=== PATIENT | female | born 1985 | race Caucasian/White ===

== ENCOUNTER → 2020-10-27 14:20 | Outpatient (BNVA) | payer MEDICAID, SELFPAY | PROVIDERS: Family Provider Family Medicine; Visit Provider Nurse Practitioner | DX: R39.9 Unspecified symptoms and signs involving the genitourinary system (principal); N39.0 Urinary tract infection, site not specified | CPT/HCPCS: 81000 ==

== ENCOUNTER 2021-03-24 17:06 | Emergency (ER) | payer MEDICAID, SELFPAY ==
--- NOTE | 2021-03-24 17:09 | CTR_ITS ---
PROCEDURE INFORMATION: Exam: CT Head Without Contrast Exam date and time: 03/24/2021 5:09 PM Age: 35 years old Clinical indication: Altered mental status/memory loss; Additional info: Od TECHNIQUE: Imaging protocol: Computed tomography of the head without contrast. Radiation optimization: All CT scans at this facility use at least one of these dose optimization techniques: automated exposure control; mA and/or kV adjustment per patient size (includes targeted exams where dose is matched to clinical indication); or iterative reconstruction. COMPARISON: No relevant prior studies available. RADIATION DOSE METRICS: Total DLP (mGy-cm): 761.63 FINDINGS: Brain: Normal. No hemorrhage. Unremarkable white matter. No mass effect. Cerebral ventricles: No ventriculomegaly. Paranasal sinuses: Visualized sinuses are unremarkable. No fluid levels. Mastoid air cells: Visualized mastoid air cells are well aerated. Bones/joints: Unremarkable. No acute fracture. Soft tissues: Unremarkable. CT/CT head wo con* [id number] IMPRESSION: No acute intracranial abnormality. Radiation Dose CTDIVOL = (mGy): DLP = 761.63 (mGy-cm)
[2021-03-24 17:13] VITALS: BP 154/100; PULSE 70; RESP 18; TEMP 37.1; O2SAT 100; BMI 24.2
--- NOTE | 2021-03-24 17:23 | ECG_ITS ---
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 Measurements Intervals [place] Rate: 61 P: 44 WA: 124 QRS: 52 QRSD: 74 T: 48 QT: 443 QTc: 450 Interpretive Statements SINUS RHYTHM Compared to ECG 05/13/2018 04:08:58 No significant changes Electronically Signed On 03-24-2021 22:48:21 STOCK PATCH SAWYER by Anabela Rivas M.D. [id number]
--- NOTE | 2021-03-24 17:24 | XRR_ITS ---
PROCEDURE INFORMATION: Exam: XR Chest Exam date and time: 03/24/2021 5:24 PM Age: 35 years old Clinical indication: Other: AMS TECHNIQUE: Imaging protocol: XR of the chest. Views: 1 view. COMPARISON: CR Chest 1 [place] [id number] 05/12/2018 11:13 PM FINDINGS: Lungs: Unremarkable. No consolidation. Pleural spaces: Unremarkable. No pleural effusion. No pneumothorax. Heart/Mediastinum: Unremarkable. No cardiomegaly. Bones/joints: Unremarkable. XR/XR chest 1V portable [id number] IMPRESSION: No acute findings. Radiation Dose CTDIVOL = (mGy): DLP = (mGy-cm)
--- NOTE | 2021-03-24 17:24 | XRR_ITS ---
PROCEDURE INFORMATION: Exam: XR Abdomen Exam date and time: 03/24/2021 5:24 PM Age: 35 years old Clinical indication: Prior surgery; Surgery type: Gb; Patient HX: Od. Possible fb; Additional info: AMS TECHNIQUE: Imaging protocol: XR of the abdomen. Views: Frontal supine view of the abdomen. 1 View. COMPARISON: CT abdomen pelvis w con* [id number] 04/26/2018 11:29 PM FINDINGS: Gastrointestinal tract: Scattered gas and stool throughout prominent colon. Small amount of gas in the rectum. Gas-filled loops of small bowel in the right abdomen measure up to 2.0 cm. Intraperitoneal space: No pneumoperitoneum. Organs: Cholecystectomy clips. Bones/joints: Intramedullary natali in the right femur transversing an old healed subtrochanteric femur fracture. XR/XR KUB [id number] IMPRESSION: 1. Gaseous prominence of the small and large bowel could represent ileus. Radiation Dose CTDIVOL = (mGy): DLP = (mGy-cm)
--- NOTE | 2021-03-24 17:32 | W.ED.OVERDOS ---
HPI - Overdose General: Chief Complaint: Overdose Stated Complaint: AMS Time Seen by Provider: 03/24/21 17:09 Source: EMS Mode of arrival: EMS Limitations: altered mental status History of Present Illness: HPI Narrative: 25-year-old female who is [facility] and found her altered. Patient was given intranasal Narcan in route patient here will wake up is able to tell me her name but then immediately passes back out unable to answer any questions unknown if she has had any drug use she has been in [facility] for 2 days. No history is available from patient no known history of seizures no known history of any head injuries recently. No bruising noted on exam. Review of Systems General: Reports: ROS unobtainable due to mental status PFSH ED PFSH: Social History Smoking and tobacco status: current every day smoker Physical Exam Const: COMMON NORMALS: negative for patient oriented x3 EXAM LIMITATIONS: altered mental status HENMT: COMMON NORMALS: normocephalic and atraumatic HEAD & SCALP: normocephalic and atraumatic Eye: COMMON NORMALS: Equal, round and reactive pupils present and EOMs intact bilaterally PUPIL: Yes Equal, round and reactive pupils present Neck/C-Spine: COMMON NORMALS: full ROM and supple Chest: COMMONS NORMALS: normal inspection of the chest and normal palpation of entire chest wall Resp: COMMON NORMALS: normal respiratory effort, No retractions, No use of accessory muscles and clear to auscultation bilaterally AUSCULTATION: clear to auscultation bilaterally Cardio: COMMON NORMALS: regular rate, regular rhythm and No murmurs present (Cardio) RATE: regular rate RHYTHM: regular rhythm GI: COMMON NORMALS: Normal to inspection, nondistended, normoactive bowel sounds present, Soft to palpation, non-tender and no masses PALPATION: Yes Soft to palpation Extremity: COMMON NORMALS: normal to inspection and full ROM Neuro: COMMON NORMALS: moves all extremities and no focal motor deficits; negative for patient oriented x3 Psych: COMMON NORMALS: mental status grossly normal; negative for Normal thought process present and negative for cooperative THOUGHT PROCESS: abnormal Skin: COMMON NORMALS: no rashes or lesions noted and no wounds GENERAL SKIN EXAM: no rashes or lesions noted Course Vital Signs: Vital signs: Vital Signs Temperature 98.7 F 03/24/21 17:13 Pulse Rate 78 03/24/21 21:08 Respiratory Rate 18 03/24/21 21:08 Blood Pressure 118/71 03/24/21 21:08 Pulse Oximetry 100 03/24/21 21:08 MDM - Overdose MDM Narrative: Medical decision making narrative: Patient presents here with altered male status since resolved. Unsure exactly the cause her drug screen here was negative blood work CT head scan normal over the last 2 hours of her stay she has been awake alert able answer all my questions appropriately she refused a rectal and vaginal exam. Patient is ambulatory in the halls. She is stable for discharge back to [facility] is return if worsening. Lab Data: Labs: Lab Results 03/24/21 03/24/21 03/24/21 17:30 17:30 17:30 WBC 9.4 10^3/uL 10^3/ uL (4.0-10.0) RBC 4.48 10^6/uL 10^6 /uL (4.1-5.3) Hgb 13.0 g/dL g/dL (11.5-15.3) Hct 38.0 % % (37.0-47.0) MCV 84.8 fl fl (81-99) MCH 29.0 pg pg (28.0-34.0) MCHC 34.2 g/dL g/dL (30.0-36.0) RDW 13.8 % % (12.1-15.1) Plt Count 284 10^3/cmm 10^3 /cmm (130-400) MPV 9.2 fL fL (7.4-10.4) Neut % (Auto) 67.8 % % Lymph % (Auto) 25.8 % % Esmeralda % (Auto) 5.5 % % Eos % (Auto) 0.2 % % Baso % (Auto) 0.4 % % Neut # (Auto) 6.39 10^3/uL 10^3 /uL (1.8-7.7) Lymph # (Auto) 2.4 10^3/uL 10^3/ uL (0.8-4.8) Esmeralda # (Auto) 0.5 10^3/uL 10^3/ uL (0.2-0.9) Eos # (Auto) 0.0 10^3/uL 10^3/ uL (0.0-0.8) Baso # (Auto) 0.0 10^3/uL 10^3/ uL (0.0-0.1) Nucleated RBC % (a uto) 0 % % Nucleated RBCs # 0.0 /100WBC /100W BC Sodium Cancelled Potassium Cancelled Chloride Cancelled Carbon Dioxide Cancelled Anion Gap Cancelled BUN Cancelled Creatinine Cancelled GFR Calculation Cancelled Glucose Cancelled Calculated Osmolal ity Cancelled Calcium Cancelled Total Bilirubin Cancelled AST Cancelled ALT Cancelled Alkaline Phosphata se Cancelled Total Protein Cancelled Albumin Cancelled Globulin Cancelled HCG, Qual Negative (Negative) Salicylates Cancelled Urine Opiates Scre en Acetaminophen Cancelled Ur Barbiturates Sc reen Ur Phencyclidine S crn Ur Amphetamines Sc reen U Benzodiazepines Scrn Urine Cocaine Scre en U Marijuana (THC) Screen Ethyl Alcohol Cancelled 03/24/21 03/24/21 17:45 18:59 WBC RBC Hgb Hct MCV MCH MCHC RDW Plt Count MPV Neut % (Auto) Lymph % (Auto) Esmeralda % (Auto) Eos % (Auto) Baso % (Auto) Neut # (Auto) Lymph # (Auto) Esmeralda # (Auto) Eos # (Auto) Baso # (Auto) Nucleated RBC % (a uto) Nucleated RBCs # Sodium 141 mmol/L mmol/L (136-145) Potassium 3.2 mmol/L L mmol /L (3.5-5.1) Chloride 111 mmol/L H mmol /L (98-107) Carbon Dioxide 16 mmol/L L mmol/ L (22-29) Anion Gap 17.2 (5-19) BUN 25 mg/dL H mg/dL (6-20) Creatinine 1.6 mg/dL H mg/dL (0.5-0.9) GFR Calculation 36.7 mL/min L mL/ min (90-130) Glucose 84 mg/dL mg/dL (65-115) Calculated Osmolal ity 296 mOsm/kg H mOs m/kg (285-295) Calcium 7.7 mg/dL L mg/dL (8.5-10.5) Total Bilirubin 0.5 mg/dL mg/dL (0.15-1.2) AST 6 U/L U/L (0-32) ALT < 5 U/L U/L (0-33) Alkaline Phosphata se 53 IU/L IU/L (35-105) Total Protein 7.7 g/dL g/dL (6.6-8.7) Albumin 3.9 g/dL g/dL (3.5-5.2) Globulin 3.8 g/dL g/dL (1.3-4.6) HCG, Qual Salicylates < 0.3 mg/dL L mg/ dL (3-10) Urine Opiates Scre en Negative ng/mL ng /mL (Negative) Acetaminophen < 5.0 ug/mL L ug/ mL (10-30) Ur Barbiturates Sc reen Negative ng/mL ng /mL (Negative) Ur Phencyclidine S crn Negative ng/mL ng /mL (Negative) Ur Amphetamines Sc reen Negative ng/mL ng /mL (Negative) U Benzodiazepines Scrn Negative ng/mL ng /mL (Negative) Urine Cocaine Scre en Negative ng/mL ng /mL (Negative) U Marijuana (THC) Screen Negative ng/mL ng /mL (Negative) Ethyl Alcohol Imaging Data^: CT Head: Attestation: I personally reviewed and interpreted this imaging study as follows: Radiologist's impression: [address] [place] [address] CT Scan Report Signed Patient: Monica Denney Unit #: [id number] : 1985 Age/Sex: 35 / F ADM Date: 03/24/21 Loc: ER Room/Bed: Attending Dr: Ordering Provider/Ordering MD: Keo Fierro MD Date of Service: 03/24/21 Procedure(s): CT head wo con* [id number] Accession Number(s): [id number] Report Number: [id number] PROCEDURE INFORMATION: Exam: CT Head Without Contrast Exam date and time: 03/24/2021 5:09 PM Age: 35 years old Clinical indication: Altered mental status/memory loss; Additional info: Od TECHNIQUE: Imaging protocol: Computed tomography of the head without contrast. Radiation optimization: All CT scans at this facility use at least one of these dose optimization techniques: automated exposure control; mA and/or kV adjustment per patient size (includes targeted exams where dose is matched to clinical indication); or iterative reconstruction. COMPARISON: No relevant prior studies available. RADIATION DOSE METRICS: Total DLP (mGy-cm): 761.63 FINDINGS: Brain: Normal. No hemorrhage. Unremarkable white matter. No mass effect. Cerebral ventricles: No ventriculomegaly. Paranasal sinuses: Visualized sinuses are unremarkable. No fluid levels. Mastoid air cells: Visualized mastoid air cells are well aerated. Bones/joints: Unremarkable. No acute fracture. Soft tissues: Unremarkable. CT/CT head wo con* [id number] IMPRESSION: No acute intracranial abnormality. Radiation Dose CTDIVOL = (mGy): DLP = 761.63 (mGy-cm) Dictated By: Avinash Hammer Signed By: Avinash Hammer Signed Date/Time: 03/24/211755 DD/ 08 CXR: Radiologist's impression: [address] [address] XRay Report Signed Patient: Monica Denney Unit #: [id number] : 1985 Age/Sex: 35 / F ADM Date: 03/24/21 Loc: ER Room/Bed: Attending Dr: Ordering Provider/Ordering MD: Keo Fierro MD Date of Service: 03/24/21 Procedure(s): XR chest 1V portable [id number] Accession Number(s): [id number] Report Number: [id number] PROCEDURE INFORMATION: Exam: XR Chest Exam date and time: 03/24/2021 5:24 PM Age: 35 years old Clinical indication: Other: AMS TECHNIQUE: Imaging protocol: XR of the chest. Views: 1 view. COMPARISON: CR Chest 1 [place] [id number] 05/12/2018 11:13 PM FINDINGS: Lungs: Unremarkable. No consolidation. Pleural spaces: Unremarkable. No pleural effusion. No pneumothorax. Heart/Mediastinum: Unremarkable. No cardiomegaly. Bones/joints: Unremarkable. XR/XR chest 1V portable [id number] IMPRESSION: No acute findings. Radiation Dose CTDIVOL = (mGy): DLP = (mGy-cm) Dictated By: Avinash Hammer Signed By: Avinash Hammer Signed Date/Time: 03/24/211756 DD/ 1724 Discharge Plan Discharge Patient Disposition: Home Clinical Impression: Altered mental status Qualifiers: Altered mental status type: unspecified Qualified Code(s): R41.82 - Altered mental status, unspecified Condition: Stable Prescriptions: No Action No Known Home Medications RF: 0 ciprofloxacin HCl 500 mg tablet 500 mg PO Q12H 7 Days Qty: 14 RF: 0 phenazopyridine [Pyridium] 200 mg tablet 200 mg PO TID Qty: 6 RF: 0 Discharge Orders: Discharge ED (Routine); Ordered 03/24/21 Ordered By: Keo Fierro Referrals: Shemar Mosqueda MD [Primary Care Provider] - 1-3 days Discharge Diet: Advance as tolerated Discharge Activity: Resume usual activity Patient Instructions: Altered Mental Status (ED) Coding Level of Care Code 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
[2021-03-24 17:53] LABS: Basophils % 0.4 %; Eosinophils % 0.2 %; Lymphocytes # 2.4 10^3/uL (0.8-4.8); Lymphocytes % 25.8 %; Mean Corpuscular HGB Conc 34.2 g/dL (30.0-36.0); Mean Corpuscular Volume 84.8 fl (81-99); Mean Platelet Volume 9.2 fL (7.4-10.4); Monocytes # 0.5 10^3/uL (0.2-0.9); Monocytes % 5.5 %; Neutrophils # 6.39 10^3/uL (1.8-7.7); Neutrophils % 67.8 %; Nucleated Red Blood Cells % 0 %; Platelet Count 284 10^3/cmm (130-400); Red Blood Count 4.48 10^6/uL (4.1-5.3); Red Cell Distribution Width 13.8 % (12.1-15.1); White Blood Count 9.4 10^3/uL (4.0-10.0)
[2021-03-24] MEDS: sodium chloride 0.9% 1,000 ML 999 ML IV ×2 (17:57→20:20)
[2021-03-24] MEDS: naloxone 0.4 mg/ml SDV 1 MG IVP (17:57)
[2021-03-24 18:00] VITALS: BP 132/87; PULSE 75; RESP 18; O2SAT 98
[2021-03-24 18:55] LABS: HCG, Serum Qual Negative (Negative)
[2021-03-24 19:06] LABS: Amphetamines Screen Urine Negative (Negative); Barbiturates Screen Urine Negative (Negative); Benzodiazepines Screen Urine Negative (Negative); Cocaine Screen Urine Negative (Negative); Opiate Screen Urine Negative (Negative); PCP Screen Urine Negative (Negative); THC Screen Urine Negative (Negative)
[2021-03-24 19:26] LABS: Alanine Aminotransferase < 5 U/L (0-33); Albumin Level 3.9 g/dL (3.5-5.2); Alkaline Phosphatase 53 IU/L (35-105); Anion Gap 17.2 (5-19); Aspartate Amino Transferase 6 U/L (0-32); Blood Urea Nitrogen 25 mg/dL (6-20); Calcium 7.7 mg/dL (8.5-10.5); Carbon Dioxide 16 mmol/L (22-29); Chloride 111 mmol/L (98-107); Globulin 3.8 g/dL (1.3-4.6); Glomerular Filtration Rate 36.7 mL/min (90-130); Glucose 84 mg/dL (65-115); Osmolality Calculated 296 mOsm/kg (285-295); Potassium 3.2 mmol/L (3.5-5.1); Sodium 141 mmol/L (136-145); Total Bilirubin 0.5 mg/dL (0.15-1.2); Total Protein 7.7 g/dL (6.6-8.7)
[2021-03-24 19:32] LABS: Acetaminophen < 5.0 ug/mL (10-30); Salicylate < 0.3 mg/dL (3-10)
[2021-03-24 21:08] VITALS: BP 118/71; PULSE 78; RESP 18; O2SAT 100
[2021-03-26 22:47] LABS: Alcohol Metabolites NEGATIVE ng/mL (<500)
== END 2021-03-24 21:10 | disposition home or self-care (01) ==
PROVIDERS: Emergency Provider Emergency Medicine; PCP Family Medicine
DX: R41.82 Altered mental status, unspecified (principal); F17.210 Nicotine dependence, cigarettes, uncomplicated
CPT/HCPCS: 70450; 71045; 74018; 80053; 80306; 80307; 84703; 85025; 93005; 96361; 96374; 99284; J2310; J7030

== ENCOUNTER 2021-04-06 21:34 | Emergency (ER) | payer MEDICAID, SELFPAY ==
[2021-04-06 21:37] VITALS: BP 146/103; PULSE 101; RESP 18; TEMP 36.6; O2SAT 99; BMI 24.2
--- NOTE | 2021-04-06 21:42 | ED_ITS ---
HPI - Dental/Oral General: Chief complaint: Dental/Oral Stated complaint: Abcessed Tooth Pain Time Seen by Provider: 04/06/21 21:42 History of Present Illness: HPI Narrative: Patient comes in with concerns for right lower jaw pain and swelling. Patient reports noticing the pain yesterday but the swelling starting this morning. Patient has no difficulty swallowing. Patient appears mildly unwell but not toxic. Review of Systems General: Reports: 10 or more systems reviewed and unremarkable except in HPI and below ENMT: Reports: dental pain PFSH ED PFSH: Social History Smoking and tobacco status: current every day smoker Physical Exam Const: COMMON NORMALS: no acute distress and patient oriented x3 GENERAL APPEARANCE: cooperative HENMT: COMMON NORMALS: normocephalic, TM's normal bilaterally and Normal external nose present HEAD & SCALP: normal to inspection and normocephalic NOSE: Normal external nose present TYMPANIC MEMBRANE: TM's normal bilaterally MOUTH: other (Poor dentition, swelling of the gumline to the first premolar) THROAT: posterior oropharynx normal Eye: GENERAL EYE: appearance normal, both eyes and all related structures Neck/C-Spine: COMMON NORMALS: full ROM Lymph: OTHER: Right side cervical lymphadenopathy Chest: COMMONS NORMALS: normal inspection of the chest Resp: COMMON NORMALS: normal respiratory effort EFFORT & INSPECTION: Yes able to speak in complete sentences Cardio: COMMON NORMALS: regular rate and regular rhythm RATE: regular rate RHYTHM: regular rhythm GI: COMMON NORMALS: non-tender Back/Pelvis: COMMON NORMALS: thoracic and lumbar spine normal to inspection Extremity: COMMON NORMALS: normal to inspection Neuro: COMMON NORMALS: patient oriented x3 and moves all extremities Psych: COMMON NORMALS: mental status grossly normal and cooperative Skin: COMMON NORMALS: no rashes or lesions noted GENERAL SKIN EXAM: no rashes or lesions noted Course Vital Signs: Vital signs: Vital Signs Temperature 97.8 F 04/06/21 21:37 Pulse Rate 101 H 04/06/21 21:37 Respiratory Rate 18 04/06/21 21:37 Blood Pressure 146/103 04/06/21 21:37 Pulse Oximetry 99 04/06/21 21:37 MDM - Dental/Oral MDM Narrative: Medical decision making narrative: 35-year-old female comes in today with right lower jaw pain. On exam patient has some swelling and tenderness to the right lower jaw in the area surrounding the first premolar. Patient has really poor dentition with multiple dental caries and decay to the gumline. Differential diagnosis includes odontalgia, dental abscess, floor mouth cellulitis. No sign of serious illness is noted. Patient is able to manage secretions well and voice is clear. Patient be started on Augmentin 875 twice a day for 7 days. Patient was strongly encouraged to follow-up with dentist for definitive care. Patient was instructed use acetaminophen for pain along with ice or heat. Patient reported understanding and agreed to plan. Discharge Plan Discharge Patient Disposition: Home Clinical Impression: Dental abscess Condition: Stable Prescriptions: New Augmentin 875-125 mg tablet 1 tab PO BID Qty: 14 RF: 0 No Action ciprofloxacin HCl 500 mg tablet 500 mg PO Q12H 7 Days Qty: 14 RF: 0 phenazopyridine [Pyridium] 200 mg tablet 200 mg PO TID Qty: 6 RF: 0 Discharge Orders: Discharge ED (Routine); Ordered 04/06/21 Ordered By: Shailesh Velazquez Referrals: Shemar Mosqueda MD [Primary Care Provider] - Discharge Diet: Usual diet Discharge Activity: Increase activity as tolerated Patient Instructions: Dental Abscess (ED), Opioid Safety Coding Level of Care Code ED Sales Support Consultant for Cheryl Hernandez
[2021-04-06] MEDS: amoxicillin-clav 875-125 mg Tablet 1 TAB PO (21:52)
[2021-04-06 21:56] VITALS: RESP 16
== END 2021-04-06 21:56 | disposition home or self-care (01) ==
PROVIDERS: Emergency Provider Nurse Practitioner Family; PCP Family Medicine
DX: K04.7 Periapical abscess without sinus (principal); F17.210 Nicotine dependence, cigarettes, uncomplicated
CPT/HCPCS: 99282

== ENCOUNTER 2021-09-06 13:36 | Emergency (ER) | payer MEDICAID, SELFPAY ==
[2021-09-06 13:44] VITALS: BP 153/97; PULSE 110; RESP 16; TEMP 36.4; O2SAT 100; BMI 20.9
--- NOTE | 2021-09-06 13:55 | ED_ITS ---
HPI - Dental/Oral General: Chief complaint: Dental/Oral Stated complaint: infected tooth Time Seen by Provider: 09/06/21 13:52 Source: patient Mode of arrival: ambulatory Limitations: no limitations History of Present Illness: Patient is a 35-year-old female who presents to ED today with complaint of a possible abscessed tooth to her right lower gumline that she has noticed over the past 2 days. Patient tells me she has a history of poor dentition. She states she has an upcoming dental appointment to get several extractions and fears they will not perform the procedures unless she is on antibiotics. MD Complaint: tooth pain Teeth map: 1. Onset (ago): day(s) Duration: constant Severity: moderate Relieving factors: nothing Exacerbating factors: chewing Context: history of dental caries and poor dental care Associated symptoms: Reports no associated symptoms; Denies ear or mastoid pain or fever(s) Treatment prior to arrival: none Review of Systems Const: Denies: fever(s), chills, body aches, fatigue or malaise ENMT: Reports: dental pain; Denies: hoarseness, swelling of lips/tongue, oral sores, bleeding gums or ear or mastoid pain Card: Denies: chest pain Resp: Denies: dyspnea GI: Denies: abdominal pain, nausea or vomiting Musc: Denies: neck pain Skin/Breast: Denies: rash Neuro: Denies: headache(s) PFS ED PFSH: Social History Smoking and tobacco status: current every day smoker Physical Exam Const: COMMON NORMALS: no acute distress, patient oriented x3, no limitations and alert GENERAL APPEARANCE: cooperative HENMT: COMMON NORMALS: normocephalic and atraumatic HEAD & SCALP: normal to inspection, normocephalic and atraumatic FACE & SINUS: normal facial exam MOUTH: Normal oral and palatal mucosa present, lip normal and tongue normal TEETH & GINGIVA: Yes caries and Yes poor dentition (severe widespread dental decay) TEETH & GINGIVA IMAGES: 1. several severely decayed teeth; she has some moderate swelling to lower gumline-possibly small developing abscess THROAT: posterior oropharynx normal, tonsils normal and uvula midline Eye: GENERAL EYE: appearance normal, both eyes and all related structures Neck/C-Spine: COMMON NORMALS: full ROM and no lymphadenopathy GENERAL: Yes normal visual inspection, No anterior neck swelling, No lymphadenopathy and No submandibular swelling Resp: COMMON NORMALS: normal respiratory effort Cardio: COMMON NORMALS: regular rate and regular rhythm RATE: regular rate RHYTHM: regular rhythm Neuro: CAL COMA SCALE: document GCS findings Cal coma scale eye opening: Spontaneous Cal coma scale verbal response: Orientated [place] coma scale motor response: Obey commands [place] coma scale total score: 15 COMMON NORMALS: patient oriented x3 and CN's II-XII intact bilaterally SENSORIUM/ORIENTATION: Yes alert Skin: COMMON NORMALS: no rashes or lesions noted GENERAL SKIN EXAM: no rashes or lesions noted Course Vital Signs: Vital signs: Vital Signs Temperature 97.6 F 09/06/21 13:44 Pulse Rate 110 H 09/06/21 13:44 Respiratory Rate 16 09/06/21 13:44 Blood Pressure 153/97 09/06/21 13:44 Pulse Oximetry 100 09/06/21 13:44 MDM - Dental/Oral Medical Decision Making Patient given IM clindamycin prior to discharge will be placed on oral clindamycin at home. Recommend she follow-up with her dental appointment in approximately a week for reevaluation. Return to ED precautions given. Discharge Plan Discharge Patient Disposition: Home Clinical Impression: Dental abscess, Dental caries Condition: Stable Prescriptions: New Peridex 0.12 % mouthwash 15 ml buccal BID Qty: 473 0RF clindamycin HCl 300 mg capsule 300 mg PO Q6H 7 Days Qty: 28 0RF Discontinued ciprofloxacin HCl 500 mg tablet 500 mg PO Q12H 7 Days Qty: 14 0RF phenazopyridine [Pyridium] 200 mg tablet 200 mg PO TID Qty: 6 0RF amoxicillin-pot clavulanate [Augmentin] 875-125 mg tablet 1 tab PO BID Qty: 14 0RF Discharge Orders: Discharge ED (Routine); Ordered 09/06/21 Ordered By: Raina Babcock Referrals: Shemar Mosqueda MD [Primary Care Provider] - Patient Instructions: Dental Caries (Cavities), Dental Abscess (ED), Toothache (ED) Coding Level of Care Code ED English Faculty Member for Cheryl Hernandez
[2021-09-06] MEDS: clindamycin 150 mg/mL SDV 6 mL 600 MG IM (14:39)
== END 2021-09-06 15:17 | disposition home or self-care (01) ==
PROVIDERS: Emergency Provider Physician Assistant; PCP Family Medicine
DX: K04.7 Periapical abscess without sinus (principal); K02.9 Dental caries, unspecified; F17.200 Nicotine dependence, unspecified, uncomplicated
CPT/HCPCS: 96372; 99283; J3490

== ENCOUNTER 2023-11-11 08:18 | Emergency (ER) | payer BC, MEDICAID, SELFPAY ==
[2023-11-11 08:24] VITALS: BP 134/93; PULSE 117; RESP 20; TEMP 37; O2SAT 100; BMI 24.7
--- NOTE | 2023-11-11 08:34 | CTR_ITS ---
PROCEDURE INFORMATION: Exam: CT Abdomen And Pelvis Without Contrast Exam date and time: 11/11/2023 9:17 AM Age: 38 years old Clinical indication: Abdominal pain; Flank; Other: Bilateral; Prior surgery; Surgery date: 6+ months; Surgery type: Hernia; Additional info: Polycystic kidney disease TECHNIQUE: Imaging protocol: Computed tomography of the abdomen and pelvis without contrast. Radiation optimization: All CT scans at this facility use at least one of these dose optimization techniques: automated exposure control; mA and/or kV adjustment per patient size (includes targeted exams where dose is matched to clinical indication); or iterative reconstruction. COMPARISON: CT abdomen pelvis w con* [id number] 04/26/2018 11:29 PM RADIATION DOSE METRICS: Total DLP (mGy-cm): 433 FINDINGS: Lungs: Lung bases are clear as visualized. Liver: Normal. No mass. Gallbladder and biliary ducts: There are surgical clips within the gallbladder fossa. Pancreas: Normal. No ductal dilation. Spleen: Normal. No splenomegaly. Adrenal glands: Normal. No mass. Kidneys and ureters: The kidneys are enlarged with numerous cysts present. There are multiple calcifications involving both kidneys. No definite hydronephrosis is noted. No ureteral calculi is identified. There is mild perinephric fat stranding involving the posterior upper and mid perinephric soft tissues. This could be related to inflammation involving the left kidney possible rupture of a cyst or possibly a small amount of hemorrhage from cyst rupture. Stomach and bowel: No dilated loops of large or small bowel is appreciated. There are a few scattered colonic diverticula. No bowel wall thickening is noted. Appendix: No evidence of appendicitis. Intraperitoneal space: Unremarkable. No free air. No significant fluid collection. Vasculature: Unremarkable. No abdominal aortic aneurysm. Lymph nodes: Unremarkable. No enlarged lymph nodes. Urinary bladder: Unremarkable as visualized. Reproductive: Unremarkable as visualized. Bones/joints: There are postoperative changes involving the proximal right femur. No blastic or lytic bony lesions are identified. Soft tissues: See Kidneys and ureters finding. CT/CT kidney stone [id number] IMPRESSION: 1. Polycystic kidney disease. 2. Mild degree of perinephric fat stranding involving the left kidney. Differential possibilities are given above. COMMENTS: Consistent with the [place] [employer]'s Incidental Findings Committee white paper (J [employer] Indy Radiol 2018): Any incidental renal lesion less than 1 cm or classified as too small to characterize, or any incidental cystic renal lesion characterized as simple-appearing, is likely benign. No follow-up imaging is recommended for these lesions per consensus recommendations based on imaging criteria.
[2023-11-11 08:46] VITALS: RESP 16; O2SAT 100
[2023-11-11] MEDS: fentaNYL 50 mcg/mL INJ 2mL IVP (08:46)
[2023-11-11] MEDS: ondansetron 2 mg/ML SDV 2 mL 4 MG IVP (08:46)
[2023-11-11] MEDS: sodium chloride 0.9% 1,905.09 ML 1905.09 ML IV (08:49)
[2023-11-11 08:56] VITALS: BP 137/80; PULSE 110; RESP 17; O2SAT 100
--- NOTE | 2023-11-11 08:56 | ECG_ITS ---
[facility] Test Date: 2023-11-11 Pat Name: Monica Denney Department: Room: Gender: Female [employer]: : 1985 Requested By: Frances Chacon Order Number: [id number] Rea MD: Fermin Parra M.D. Measurements Intervals [place] Rate: 106 P: 56 IN: 138 QRS: 38 QRSD: 72 T: 31 QT: 305 QTc: 406 Interpretive Statements SINUS TACHYCARDIA Compared to ECG 03/24/2021 20:07:44 Sinus rhythm no longer present Electronically Signed On 11-12-2023 19:31:55 CDT by Fermin Parra M.D. [id number] f
[2023-11-11 08:57] LABS: Basophils % 0.3 %; Eosinophils % 0.4 %; Hematocrit 30.3 % (36-47); Lymphocytes # 1.1 10^3/uL (0.8-4.8); Mean Corpuscular HGB Conc 33.3 g/dL (30-55); Mean Corpuscular Hemoglobin 31.1 pg (27-33); Mean Corpuscular Volume 93.2 fl (85-98); Mean Platelet Volume 9.3 fL (7.4-10.4); Monocytes # 0.7 10^3/uL (0.2-0.9); Monocytes % 6.3 %; Neutrophils # 9.39 10^3/uL (1.8-7.7); Neutrophils % 82.6 %; Nucleated Red Blood Cells % 0 %; Platelet Count 216 10^3/cmm (157-399); Red Blood Count 3.25 10^6/uL (3.85-5.65); Red Cell Distribution Width 12.2 % (12.1-15.1); White Blood Count 11.35 10^3/uL (3.29-11.43)
--- NOTE | 2023-11-11 09:07 | ED_ITS ---
HPI - Abdominal Pain 2 General: Chief Complaint: Abdominal Pain Stated Complaint: fever, abd pain, blood in urine Time Seen by Provider: 11/11/23 08:27 History of Present Illness: This patient is a 38 year old presenting with hematuria, back pain, flank pain, fever, chills, nausea and urinary frequency. She report that she has had some intermittent symptoms for a week and a half or so, but the fevers, chills, nausea started in the past two days. She had a temp of 104 at home yesterday. She has a history of polycystic kidney disease. She denies having had significant hematuria in the past. She sees a kidney specialist in another town - about [place] past [place]. She says that she was referred there by Dr. Mosqueda, her PCP, because the doctors in [place] didn't take her insurance. She takes ibuprofen for pain and fever and took a dose last night. PFSH ED 2 PFSH: Social History Smoking and tobacco/nicotine status: current every day tobacco/nicotine user Physical Exam 2 Const: COMMON NORMALS: patient oriented x3, no limitations and alert G ENERAL APPEARANCE: cooperative, in distress and ill appearing HENMT: HEAD & SCALP: normal to inspection FACE & SINUS: normal facial exam Eye: GENERAL EYE: appearance normal, both eyes and all related structures Neck/C-Spine: COMMON NORMALS: supple and no meningeal signs Chest: COMMONS NORMALS: normal inspection of the chest Resp: COMMON NORMALS: clear to auscultation bilaterally EFFORT & INSPECTION: Yes tachypneic AUSCULTATION: clear to auscultation bilaterally Cardio: COMMON NORMALS: regular rhythm, S1 normal heart sound present and S2 normal heart sound present RATE: tachycardic RHYTHM: regular rhythm H EART SOUNDS: S1 normal heart sound present, S2 normal heart sound present and no murmurs GI: PALPATION: Yes Tenderness to palpation present (GI) Details: LLQ and RLQ and Yes Guarding due to palpation present (GI) : BLADDER/KIDNEY EXAM: Yes CVA tenderness bilateral Back/Pelvis: COMMON NORMALS: thoracic and lumbar spine normal to inspection GENERAL BACK: Yes CVA tenderness Extremity: COMMON NORMALS: normal to inspection Neuro: COMMON NORMALS: patient oriented x3, moves all extremities, no focal motor deficits and no sensory deficits noted SENSORIUM/ORIENTATION: Yes alert MENINGEAL SIGNS: Yes no meningeal signs Psych: COMMON NORMALS: mental status grossly normal, cooperative and normal affect Skin: COMMON NORMALS: no rashes or lesions noted and turgor normal GENERAL SKIN EXAM: no rashes or lesions noted and turgor normal Course 2 Vital Signs: Vital signs: Vital Signs Temperature 98.6 F 11/11/23 08:24 Pulse Rate 110 H 11/11/23 08:56 Respiratory Rate 17 11/11/23 08:56 Blood Pressure 128/73 11/11/23 10:29 Pulse Oximetry 98 11/11/23 10:29 Oxygen Delivery Me thod Room Air 11/11/23 08:24 MDM - Abdominal Pain Medical Decision Making Fever, urinary symptoms, tachycardia - sepsis suspected and septic work up started. IVF given. IV abx will be started based on likely urinary source. BC sent. Lactic sent. CT abd/pelvis pending to eval degree of kidney disease and eval for a possible infected stone. Hemodynamic reassessment post fluids - HR now in the 90's. BP 120/70. She looks and feels better. Temp 100.4 on my recheck. We discussed my wish to admit her - although that would involve transferring most likely as we do not have urology here. We discussed her labs in details including the worsening renal function. We discussed the CT findings and the possible causes for the findings. I cannot rule out an abscess and she understands that. She does not want to be admitted. She is here with her sister and through shared decision making with them I came to the decision that I will let her go home without requiring her to sign out AMA. I will prescribe a renal dose of cipro - which per UpToDate has better penetration into the kidneys in the case of an abscess than other UTI drugs. I discussed return precautions in detail with the patient and her sister and I believe she will return if worse. I also discussed the importance of avoiding NSAIDS due to her poor renal function. She was also able to tolerate food and fluid in the ED prior to discharge. Lab Data 11/11/23 08:37 11/11/23 08:37 Labs/Radiology: Radiology Impressions Abdomen/Pelvis CT 11/11/23 08:34 IMPRESSION: 1. Polycystic kidney disease. 2. Mild degree of perinephric fat stranding involving the left kidney. Differential possibilities are given above. COMMENTS: Consistent with the [employer]'s Incidental Findings Committee white paper (J Am Indy Radiol 2018): Any incidental renal lesion less than 1 cm or classified as too small to characterize, or any incidental cystic renal lesion characterized as simple-appearing, is likely benign. No follow-up imaging is recommended for these lesions per consensus recommendations based on imaging criteria. ADDENDUM: 11/11/23 0949 COMMENT: THIS REPORT CONTAINS FINDINGS THAT MAY BE CRITICAL TO PATIENT CARE. The exam findings were verbally communicated by me to JANET ALDANA via telephone conference at 9:47 AM CDT on 11/11/2023. The findings were acknowledged and understood. Laboratory Results WBC 11.35 10^3/uL (3.29-11.43) 11/11/23 08:37 RBC 3.25 10^6/uL (3.85-5.65) L 11/11/23 08:37 Hgb 10.10 g/dL (11.27-16.99) L 11/11/23 08:37 Hct 30.3 % (36-47) L 11/11/23 08:37 MCV 93.2 fl (85-98) 11/11/23 08:37 MCH 31.1 pg (27-33) 11/11/23 08:37 MCHC 33.3 g/dL (30-55) 11/11/23 08:37 RDW 12.2 % (12.1-15.1) 11/11/23 08:37 Plt Count 216 10^3/cmm (157-399) 11/11/23 08:37 MPV 9.3 fL (7.4-10.4) 11/11/23 08:37 Neut % (Auto) 82.6 % 11/11/23 08:37 Lymph % (Auto) 10.0 % 11/11/23 08:37 [place] % (Auto) 6.3 % 11/11/23 08:37 Eos % (Auto) 0.4 % 11/11/23 08:37 Baso % (Auto) 0.3 % 11/11/23 08:37 Neut # (Auto) 9.39 10^3/uL (1.8-7.7) H 11/11/23 08:37 Lymph # (Auto) 1.1 10^3/uL (0.8-4.8) 11/11/23 08:37 [place] # (Auto) 0.7 10^3/uL (0.2-0.9) 11/11/23 08:37 Eos # (Auto) 0.0 10^3/uL (0.0-0.8) 11/11/23 08:37 Baso # (Auto) 0.0 10^3/uL (0.0-0.1) 11/11/23 08:37 Nucleated RBC % (auto) 0 % 11/11/23 08:37 Nucleated RBCs # 0.0 /100WBC 11/11/23 08:37 PT 13.60 SECONDS (12.1-14.9) 11/11/23 08:37 INR 1.01 (0.8-1.2) 11/11/23 08:37 Sodium 134 mmol/L (136-145) L 11/11/23 08:37 Potassium 4.7 mmol/L (3.5-5.1) 11/11/23 08:37 Chloride 101 mmol/L (98-107) 11/11/23 08:37 Carbon Dioxide 21 mmol/L (22-29) L 11/11/23 08:37 Anion Gap 16.7 (5-19) 11/11/23 08:37 BUN 29 mg/dL (6-20) H 11/11/23 08:37 Creatinine 2.4 mg/dL (0.5-0.9) H 11/11/23 08:37 GFR Calculation 22.6 mL/min (90-130) L 11/11/23 08:37 Glucose 91 mg/dL (65-115) 11/11/23 08:37 Calculated Osmolality 283 mOsm/kg (285-295) L 11/11/23 08:37 Lactic Acid 1.4 mmol/L (0.5-2.2) 11/11/23 08:37 Calcium 9.4 mg/dL (8.5-10.5) 11/11/23 08:37 Total Bilirubin 0.5 mg/dL (0.15-1.2) 11/11/23 08:37 AST 9 U/L (0-32) 11/11/23 08:37 ALT 7 U/L (0-33) 11/11/23 08:37 Alkaline Phosphatase 64 U/L (35-105) 11/11/23 08:37 Total Protein 8.7 g/dL (6.6-8.7) 11/11/23 08:37 Albumin 4.2 g/dL (3.5-5.2) 11/11/23 08:37 Globulin 4.5 g/dL (1.3-4.6) 11/11/23 08:37 HCG, Qual Negative (Negative) 11/11/23 08:37 Urine Color Red (Yellow) A 11/11/23 08:37 Urine Appearance Slightly cloudy (CLEAR) 11/11/23 08:37 Urine pH 6 (5-7) 11/11/23 08:37 Ur Specific [place] 1.005 (1.005-1.030) 11/11/23 08:37 Urine Protein 3+ (Negative) H 11/11/23 08:37 Urine Glucose (UA) Norm (Normal) 11/11/23 08:37 Urine Ketones Negative (Negative) 11/11/23 08:37 Urine Blood 3+ (Negative) H 11/11/23 08:37 Urine Nitrate Negative (Negative) 11/11/23 08:37 Urine Bilirubin Neg (Negative) 11/11/23 08:37 Urine Urobilinogen Norm mg/dL (Negative) 11/11/23 08:37 Ur Leukocyte Esterase 2+ (Negative) H 11/11/23 08:37 Urine RBC Too numerous to cnt /hpf (0-2) H 11/11/23 08:37 Urine WBC 15-25 /hpf (0-5) H 11/11/23 08:37 Ur Squamous Epith Cells Rare /hpf (0-5) 11/11/23 08:37 Amorphous Sediment Not Reportable 11/11/23 08:37 Urine Bacteria Trace /hpf (NONE) 11/11/23 08:37 All radiology interpretation(s) finalized by discharge Discharge Plan Discharge Patient Disposition: Home Clinical Impression: Pyelonephritis, Polycystic kidney disease Chronic renal failure Qualifiers: Chronic kidney disease stage: unspecified stage Qualified Code(s): N18.9 - Chronic kidney disease, unspecified Condition: Stable Prescriptions: New Cipro 500 mg tablet 500 mg PO DAILY Qty: 14 0RF ondansetron 4 mg tablet,disintegrating 4 mg PO Q6H PRN (Reason: nausea and vomiting) Qty: 14 0RF No Action Peridex 0.12 % mouthwash 15 ml buccal BID Qty: 473 0RF Discharge Orders: Discharge ED (Routine); Ordered 11/11/23 Ordered By: Janet Aldana Referrals: Shemar Mosqueda MD [Primary Care Provider] - Discharge Diet: Advance as tolerated Discharge Activity: Increase activity as tolerated Patient Instructions: Opioid Safety, Pain Management Activity Restrictions/Additional Instructions: NO IBUPROFEN, NO NAPROSYN You can take up to 1000 mg of acetaminophen (tylenol) every 4 -6 hours as needed for pain. Take the antibiotic once daily until gone. Return to the ED IMMEDIATELY if severe pain, vomiting, continued high fevers or other concerns. Contact your Kidney doctor to discuss close follow up. Follow up wt Dr. Mosqueda for a recheck early next week. Coding Level of Care Code ED Electric Power [employer] Examiner for Cheryl Hernandez
[2023-11-11 09:09] LABS: HCG Qualitative Urine. Negative (Negative)
[2023-11-11 09:10] LABS: Add Urine Microscopic? YES; Bilirubin Urine Neg (Negative); Blood Urine 3+ (Negative); Glucose Urine UA Norm (Normal); Ketones Urine Negative (Negative); Leukocyte Esterase Urine 2+ (Negative); Nitrate Urine Negative (Negative); Protein Urine 3+ (Negative); Specific Gravity, Urine 1.005 (1.005-1.030); Urine Appearance Slightly Cloudy (CLEAR); Urine Color Red (Yellow); Urobilinogen Urine Norm (Negative); pH Urine 6 (5-7)
[2023-11-11 09:11] LABS: Add Urine Culture? No; Bacteria Urine TRACE /hpf; RBC Urine TOO NUMEROUS TO CNT /hpf (0-2); Squamous Epithelial Cell Urine RARE /hpf (0-5); WBC Urine 15-25 /hpf (0-5)
[2023-11-11 09:18] LABS: Alanine Aminotransferase 7 U/L (0-33); Albumin Level 4.2 g/dL (3.5-5.2); Alkaline Phosphatase 64 U/L (35-105); Anion Gap 16.7 (5-19); Aspartate Amino Transferase 9 U/L (0-32); Blood Urea Nitrogen 29 mg/dL (6-20); Calcium 9.4 mg/dL (8.5-10.5); Carbon Dioxide 21 mmol/L (22-29); Chloride 101 mmol/L (98-107); Creatinine Clr Calc Pharmacy 28.5193; Globulin 4.5 g/dL (1.3-4.6); Glomerular Filtration Rate 22.6 mL/min (90-130); Glucose 91 mg/dL (65-115); Osmolality Calculated 283 mOsm/kg (285-295); Potassium 4.7 mmol/L (3.5-5.1); Sodium 134 mmol/L (136-145); Total Bilirubin 0.5 mg/dL (0.15-1.2); Total Protein 8.7 g/dL (6.6-8.7)
[2023-11-11 09:19] LABS: Lactic Sepsis W/Reflex 1.4 mmol/L (0.5-2.2)
[2023-11-11] MEDS: cefTRIAXone 1,000 mg SDV 1000 MG IVP (09:38)
[2023-11-11 10:02] LABS: INR 1.01 (0.8-1.2)
[2023-11-11 10:29] VITALS: BP 128/73; O2SAT 98
[2023-11-11 11:16] VITALS: BP 128/73; O2SAT 98
== END 2023-11-11 11:19 | disposition home or self-care (01) ==
PROVIDERS: Emergency Provider Emergency Medicine; PCP Family Medicine
DX: N12 Tubulo-interstitial nephritis, not specified as acute or chronic (principal); Q61.3 Polycystic kidney, unspecified; N18.9 Chronic kidney disease, unspecified; F17.210 Nicotine dependence, cigarettes, uncomplicated
CPT/HCPCS: 36415; 74176; 80053; 81001; 81025; 83605; 85025; 85610; 87040; 87077; 87086; 87186; 93005; 96374; 96375; 99285; J0696; J2405; J3010; J7030

== ENCOUNTER 2024-06-03 10:12 | Outpatient (CLI) | payer BC, MEDICAID, SELFPAY ==
--- NOTE | 2024-06-03 10:18 | XR_ITS ---
WS: [id number] Exam: XR lumbar spine f/e only [id number] Date/Time of Exam: 06/03/2024 10:29 AM Reason For Exam: VERTEBROGENIC LOW BACK PAIN No fracture or dislocation. Disc spaces are preserved. No significant flexion or extension instabilit y identified. Posterior elements are intact. Mild break over point at L1-2 on the flexion series. XR/XR lumbar spine f/e only [id number] IMPRESSION: 1. No flexion or extension instability identified.
== END 2024-06-03 10:13 | disposition home or self-care (01) ==
LOC: RAD 10:14
PROVIDERS: PCP Family Medicine; Visit Provider Nurse Practitioner
DX: M54.51 Vertebrogenic low back pain (principal); R93.7 Abnormal findings on diagnostic imaging of other parts of musculoskeletal system
CPT/HCPCS: 72120

== ENCOUNTER 2024-08-09 14:52 | Outpatient (CLI) | payer BC, MEDICAID, SELFPAY ==
--- NOTE | 2024-08-09 14:57 | MR_ITS ---
WS: [id number] MRI LUMBAR SPINE NONCONTRAST TECHNIQUE: Sagittal T1, T2 and STIR imaging. Axial T1 and T2 imaging. CLINICAL INFORMATION: VERTEBROGENIC LOW BACK PAIN COMPARISON: None. FINDINGS: Mild lumbar curve. No acute compression. No high-grade central canal stenosis. L1-L2: Mild annular bulging. Mild facet arthropathy. L2-L3: Mild annular bulging. Mild facet arthropathy. Spinal canal and foramina are patent. L3-L4: Mild annular bulging. Mild facet arthropathy. Spinal canal and foramina are patent. L4-L5: Mild annular bulging. Narrowing of the LEFT greater than RIGHT subarticular recess. Mild facet arthropathy. Spinal canal and foramina are patent. L5-S1: Mild annular bulging. Mild facet arthropathy. Spinal canal and foramina are patent. Visualized pelvic bony structures: Normal. Paravertebral soft tissues: Normal. Partially visualized polycystic kidneys bilaterally. Tiny disc protrusions in the cervical spine on the biofuels operations manager imaging at C2-C4. MR/MR lumbar spine wo con* [id number] IMPRESSION: 1. Mild lumbar curve. No acute compression. No high-grade central canal stenos is. 2. Mild annular bulging throughout the lumbar spine without significant spinal canal or foraminal narrowing. 3. Mild facet arthropathy more prominent at L3-L4 and L4-L5. 4. Partially visualized polycystic kidneys bilaterally. 5. No other acute findings.
== END 2024-08-09 14:53 | disposition home or self-care (01) ==
PROVIDERS: PCP Family Medicine; Visit Provider Anesthesiology Pain Medicine
DX: M54.51 Vertebrogenic low back pain (principal); M43.8X6 Other specified deforming dorsopathies, lumbar region; M51.369 Other intervertebral disc degeneration, lumbar region without mention of lumbar back pain or lower extremity pain; M47.896 Other spondylosis, lumbar region; N28.89 Other specified disorders of kidney and ureter
CPT/HCPCS: 72148

== ENCOUNTER 2024-08-19 10:46 | Outpatient (CLI) | payer BC, MEDICAID, SELFPAY ==
--- NOTE | 2024-08-19 10:53 | MR_ITS ---
WS: [id number] MRI HEAD WITH CONTRAST TECHNIQUE: Sagittal T1, T2 axial, T2 axial FLAIR, axial susceptibility weighted imaging, axial diffusion weighted images, and coronal T2 images were obtained. Pre and post-T1 axial and post T1 coronal images. ADC and FSPGR images. CLINICAL INFORMATION: AUTOSOMAL DOMINANT POLYCYSTIC KIDNEY DZ COMPARISON: CT 2020 FINDINGS: No evidence of restricted diffusion to suggest acute ischemia. Ventricular system and basilar cisterns are patent. No suspicious intracranial signal abnormalities. Normal posterior fossa. Normal vascular flow voids at the skull base. No extra-axial fluid collections. No evidence of mass or mass effect. Paranasal sinuses and mastoid air cells are well aerated. Normal posterior nasopharynx. No hemosiderin on the susceptibility weighted images. Normal optic chiasm and pituitary infundibulum. No abnormal gadolinium enhancement. Normal dural venous sinuses. MR/MR head wo/w con [id number] IMPRESSION: 1. No evidence of restricted diffusion to suggest acute ischemia. 2. No suspicious intracranial signal abnormalities. 3. No hemosiderin on the susceptibility weighted images. 4. No abnormal gadolinium enhancement. 5. Small central disc protrusion in the upper cervical spine at C3-C4. This co uld be further evaluated with cervical spine MRI.
[2024-08-19] MEDS: gadobenate dimeglumine 20 mL vial IV (12:14)
== END 2024-08-19 10:47 | disposition home or self-care (01) ==
PROVIDERS: PCP Family Medicine; Visit Provider Family Medicine
DX: Q61.2 Polycystic kidney, adult type (principal); M50.21 Other cervical disc displacement, high cervical region
CPT/HCPCS: 70553